=== PATIENT | female | born 1995 | race American Indian/Alaskan Native ===

== ENCOUNTER 2022-06-20 23:46 | Emergency (ER) | payer SELFPAY ==
[2022-06-21] MEDS ORDERED: oxyCODONE /ACETAMINOPHEN 5-325MG TAB PO ONE (05:07)
[2022-06-21] MEDS ORDERED: LIDOCAINE-MPF (1%) 10 MG/1 ML VIAL 5 ML ONE (06:46)
[2022-06-21] MEDS ORDERED: LIDOCAINE (1%) 10 MG/1 ML VIAL 20 ML MDV INFILTRATI ONE (07:55)
[2022-06-21] MEDS ORDERED: LIDOCAINE-MPF (1%) 10 MG/1 ML VIAL 5 ML INFILTRATI ONE (08:31)
[2022-06-21] MEDS ORDERED: MORPHINE 4 MG/1 ML INJ IM ONE (08:31)
--- NOTE | 2022-06-21 08:32 | Emergency Department Report ---
Abscess Boil HPI - HPI Chief Complaint: Urogenital-Female Stated Complaint: CYST/SWOLLEN VAGINA Time Seen by Provider: 06/21/22 07:44 Duration: >1 Week Location: Other Severity: Severe History: Yes Pain, No Fever, No Purulent Drainage, No Numbness, No Foreign Body, No Previous History, No Insect Bite HPI: Patient is a 26-year-old female that comes to the emergency room with vaginal abscess. Its been there for over a week. She has not seen a doctor. She is taking nothing prior to arrival for pain. She states she is new to the area and does not have a doctor. She is complaining that she has waited in the emergency room 9 hours to be seen and that has been seen by 3 providers. I apologized to her for the weight explained to her that emergency room so life- threatening things are seen first and that we would get her taken care of and get her referred to her primary care/OB. Patient endorses shaving which is most likely what contributed to this abscess. It is not a Bartholin's cyst Home Medications: Previous Rx's Medication Instructions Recorded Last Taken Type Acetaminophen/Codeine [Tylenol 1 tab PO Q6H PRN #12 tab 06/21/22 Unknown Rx /Codeine # 3 tab] cephALEXin [Keflex] 500 mg PO Q12HR #20 cap 06/21/22 Unknown Rx Allergies/Adverse Reactions: Allergies Allergy/AdvReac Type Severity Reaction Status Date / Time No Known Allergies Allergy Unverified 06/21/22 02:05 ED Review of Systems ROS: Stated complaint: CYST/SWOLLEN VAGINA Other details as noted in HPI Comment: All other systems reviewed and negative ED Past Medical Hx - Past Medical History Previous Medical History?: No - Surgical History Past Surgical History?: No - Family History Family history: no significant - Social History Smoking Status: Never Smoker Substance Use Type: None - Medications Home Medications: Home Medications Medication Instructions Recorded Confirmed Last Taken Type Acetaminophen/Codeine [Tylenol 1 tab PO Q6H PRN #12 tab 06/21/22 Unknown Rx /Codeine # 3 tab] cephALEXin [Keflex] 500 mg PO Q12HR #20 cap 06/21/22 Unknown Rx ED Abscess Boil Physical Exam - Exam General: Vital signs noted. No distress. Alert and acting appropriately. Front/Back of Body, Lg (Color): 1 - Abscess the left labial minora Size: 4 cm Exam: Yes Tenderness, Yes Fluctuance, Yes Normal Neurologic Exam, Yes Normal Circulation, No Surrounding Cellulites/Erythema, No Lymphangitis, No Crepitation, No Heart Murmur Exam: Labial minora abscess, left side. I&D performed I & D Note - I & D Note I & D Note: For mL of 1% lidocaine used to anesthetize the area. Area was cleaned with Betadine. #10 blade was used to open the abscess. A large amount of brown foul-smelling discharge was expressed. Patient had received Aloxi prior to the procedure and even with the lidocaine she screamed in pain. Additional pain medications have been ordered. Wound care provided. ED Course Vital Signs 06/21/22 00:30 Temperature 98.6 F Pulse Rate 104 H Respiratory 18 Rate Blood Pressure 117/80 O2 Sat by Pulse 100 Oximetry Critical care attestation.: If time is entered above; I have spent that time in minutes in the direct care of this critically ill patient, excluding procedure time. ED Medical Decision Making - Medical Decision Making Vital Signs 06/21/22 00:30 Temperature 98.6 F Pulse Rate 104 H Respiratory 18 Rate Blood Pressure 117/80 O2 Sat by Pulse 100 Oximetry Patient had been medicated with Charu prior to my arrival. I&D performed. See procedure note. Medicated with Rocephin IM and IM morphine. Patient being discharged home with discharge plan of care including diet, activity, medications and follow-up. She verbalizes understanding of plan of care. ED Disposition Clinical Impression: Labial abscess Disposition: 01 HOME / SELF CARE / HOMELESS Is pt being admited?: No Does the pt Need Aspirin: No Condition: Stable Instructions: Skin Abscess Additional Instructions: Soak in Epson salts in a tub for 20 minutes 3 times a day. This will encourage/facilitate drainage. Follow-up with PCP and/or OB. Have given you referrals below. Medication is ordered today. [id number] Motrin and Tylenol can also be used for pain. Referrals: ERIC JHA MD [Staff Physician] - 3-[address] JONNY,MAGGIE L, MD [Staff Physician] - 3-5 Days Forms: Work/School Release Form(ED) Time of Disposition: 08:36
[2022-06-21] MEDS ORDERED: ONDANSETRON 4 MG ODT TAB PO ONE (09:37)
[2022-06-21 09:58] VITALS: BP 120/87
== END 2022-06-21 09:57 | disposition home or self-care (01) ==
LOC: ED 23:46
DX: N76.4 Abscess of vulva (principal)
CPT/HCPCS: 56405; 96372; 99282; J0696; J2270; J3490; Q0162